=== PATIENT | female | born 1930 | race Caucasian/White ===

== ENCOUNTER 2016-06-12 10:11 | Emergency (ER) | payer OTHER ==
[2016-06-12] MEDS ORDERED: ONDANSETRON HCL 4 MG/2 ML SOL IV ONE ×2 (10:14→11:07)
[2016-06-12 10:31] LABS: BASOPHILS % (AUTO) 1 % (0-3); EOSINOPHILS % (AUTO) 5 % (0-9); HEMATOCRIT 36 % (35-47); MEAN CORPUSCULAR VOLUME 94 fL (81-99); MONOCYTES % (AUTO) 4.8 % (0-12); NEUTROPHILS % (AUTO) 57.2 % (37-80)
[2016-06-12] MEDS ORDERED: ONDANSETRON HCL 4 MG/2 ML SOL ONE ×2 (10:35→11:12)
[2016-06-12 10:50] VITALS: TEMP 98.2
[2016-06-12 10:50] LABS: CALCIUM 8.7 mg/dl (8.5-10.1); GLOM FILT RATE 37 mL/min (>60); POTASSIUM 3.3 mMol/L (3.5-5.1); SODIUM 138 mMol/L (136-145)
[2016-06-12] MEDS ORDERED: DEXTROSE/SALINE 0.45% 1,000 ML IV ONE (11:03)
[2016-06-12 11:46] LABS: APPEARANCE,URINE Cloudy; BILIRUBIN,URINE NEGATIVE (NEGATIVE); COLOR,URINE Yellow; GLUCOSE, URINE (UA) NEGATIVE (NEGATIVE); KETONES,URINE NEGATIVE (NEGATIVE); LEUKOCYTE ESTERASE ,URINE 3+ (NEGATIVE); NITRATE,URINE NEGATIVE (NEGATIVE); OCCULT BLOOD,URINE 2+ (NEG-TRACE); PH,URINE 5.5; UROBILINOGEN,URINE 0.2 (0.2-1.0 EU)
[2016-06-12 11:55] LABS: RBC,URINE UNABLE (0-3AV/HPF); WBC,URINE TNTC (0-5AV/HPF)
[2016-06-12] MEDS ORDERED: POTASSIUM CHLORIDE 10 MEQ TER PO ONE (12:22)
[2016-06-12] MEDS ORDERED: POTASSIUM CHLORIDE 10 MEQ TER ONE (12:35)
[2016-06-12] MEDS ORDERED: SULFAMETHOXAZOLE/TRIMETHOPRI 800/160 MG PO ONE (12:36)
[2016-06-12] MEDS ORDERED: ACETAMINOPHEN 500 MG 500 MG TAB PO ONE (12:43)
[2016-06-12] MEDS ORDERED: ACETAMINOPHEN 500 MG 500 MG TAB ONE (12:45)
[2016-06-12] MEDS ORDERED: SULFAMETHOXAZOLE/TRIMETHOPRI 800/160 MG ONE (12:45)
[2016-06-12 13:40] VITALS: BP 136/59; PULSE 52; RESP 18; O2SAT 95
== END 2016-06-12 13:33 | DRG 690 ==
LOC: ED 10:11
DX: N39.0 Urinary tract infection, site not specified (principal); I50.9 Heart failure, unspecified; E11.9 Type 2 diabetes mellitus without complications; E87.6 Hypokalemia; E86.0 Dehydration; R00.0 Tachycardia, unspecified; Z79.4 Long term (current) use of insulin
CPT/HCPCS: 71010; 80048; 81001; 83880; 84484; 85025; 87077; 87088; 87186; 93005; 99285; J2405

== ENCOUNTER 2016-06-27 07:43 | Emergency (ER) | payer OTHER ==
[2016-06-27 07:54] VITALS: TEMP 97.7
[2016-06-27 08:24] LABS: BASOPHILS % (AUTO) 1 % (0-3); EOSINOPHILS % (AUTO) 4 % (0-9); HEMATOCRIT 36 % (35-47); MEAN CORPUSCULAR HGB CONC 33.6 gm/dl (32.0-36.0); MEAN CORPUSCULAR VOLUME 94 fL (81-99); NEUTROPHILS % (AUTO) 72.6 % (37-80)
[2016-06-27 08:40] LABS: POTASSIUM 3.4 mMol/L (3.5-5.1)
[2016-06-27 09:16] VITALS: BP 110/46; PULSE 59; RESP 24; O2SAT 95
== END 2016-06-27 10:00 | DRG 313 ==
LOC: ED 07:43
DX: R07.9 Chest pain, unspecified (principal); G20 Parkinson's disease; F02.80 Dementia in other diseases classified elsewhere, unspecified severity, without behavioral disturbance, psychotic disturbance, mood disturbance, and anxiety
CPT/HCPCS: 36415; 80048; 84484; 85025; 93005; 99283

== ENCOUNTER 2016-12-30 10:23 | Emergency (ER) | payer OTHER ==
[2016-12-30 10:41] VITALS: RESP 16; TEMP 98.1
[2016-12-30 11:53] VITALS: BP 118/53; PULSE 58; O2SAT 94
== END 2016-12-30 12:11 | DRG 556 ==
LOC: ED 10:23
DX: M79.605 Pain in left leg (principal)
CPT/HCPCS: 36415; 85378; 99282

== ENCOUNTER 2017-02-28 01:07 | Emergency (ER) | payer OTHER ==
[2017-02-28] MEDS: SODIUM CHLORIDE 0.9% 1000ML 1,000 ML IV SCH (02:00)
[2017-02-28 02:04] LABS: BASOPHILS % (AUTO) 1 % (0-3); EOSINOPHILS % (AUTO) 4 % (0-9); HEMATOCRIT 34 % (35-47); MEAN CORPUSCULAR HGB CONC 32.3 gm/dl (32.0-36.0); MEAN CORPUSCULAR VOLUME 96 fL (81-99); MONOCYTES % (AUTO) 7.9 % (0-12); NEUTROPHILS % (AUTO) 59.1 % (37-80)
[2017-02-28 02:12] LABS: APPEARANCE,URINE Slightly Cloudy; BILIRUBIN,URINE NEGATIVE (NEGATIVE); COLOR,URINE Light yellow; GLUCOSE, URINE (UA) NEGATIVE (NEGATIVE); KETONES,URINE NEGATIVE (NEGATIVE); LEUKOCYTE ESTERASE ,URINE 1+ (NEGATIVE); NITRATE,URINE POSITIVE (NEGATIVE); OCCULT BLOOD,URINE TRACE INTACT (NEG-TRACE); UROBILINOGEN,URINE 0.2 (0.2-1.0 EU)
[2017-02-28 02:19] LABS: CALCIUM 8.7 mg/dl (8.5-10.1); GLOM FILT RATE 35 mL/min (>60); MAGNESIUM 1.9 mg/dl (1.8-2.4); SODIUM 139 mMol/L (136-145)
[2017-02-28 02:23] LABS: RBC,URINE 0-1 (0-3AV/HPF)
[2017-02-28 02:43] VITALS: TEMP 97.2
[2017-02-28] MEDS ORDERED: LEVOFLOXACIN 500 MG (PREMIX) 500 MG/100 ML SOL IV ONE (02:49)
[2017-02-28] MEDS: LEVOFLOXACIN 25 MG/ML 500 MG in SODIUM CHLORIDE 0.9% 100 ML 100 ML IV ONE (02:54)
[2017-02-28 02:57] VITALS: O2SAT 97
[2017-02-28 04:41] VITALS: BP 120/69; PULSE 54; RESP 20
== END 2017-02-28 04:35 | DRG 689 ==
LOC: ED 01:07
DX: N39.0 Urinary tract infection, site not specified (principal); R40.2212 Coma scale, best verbal response, none, at arrival to emergency department; I50.9 Heart failure, unspecified; E11.9 Type 2 diabetes mellitus without complications; R40.2362 Coma scale, best motor response, obeys commands, at arrival to emergency department; R40.2142 Coma scale, eyes open, spontaneous, at arrival to emergency department
CPT/HCPCS: 36415; 70460; 80048; 81001; 82550; 83735; 83880; 84484; 85025; 87077; 87088; 87186; 93005; 96365; 96366; 99070; 99284; 99285; J1956

== ENCOUNTER 2017-04-07 17:21 | Emergency (ER) | payer OTHER ==
[2017-04-07 17:40] VITALS: TEMP 99.2
[2017-04-07 17:43] LABS: BASOPHILS % (AUTO) 1 % (0-3); EOSINOPHILS % (AUTO) 3 % (0-9); HEMATOCRIT 33 % (35-47); MEAN CORPUSCULAR HGB CONC 33.1 gm/dl (32.0-36.0); MEAN CORPUSCULAR VOLUME 93 fL (81-99); MONOCYTES % (AUTO) 5.8 % (0-12); NEUTROPHILS % (AUTO) 53.7 % (37-80)
[2017-04-07] MEDS ORDERED: MORPHINE SULFATE 10 MG/ML SOL IV ONE (17:55)
[2017-04-07] MEDS ORDERED: MORPHINE SULFATE 10 MG/ML SOL ONE (17:55)
[2017-04-07 17:57] LABS: ALBUMIN 3.3 gm/dl (3.4-5.0); CALCIUM 8.3 mg/dl (8.5-10.1); POTASSIUM 4.2 mMol/L (3.5-5.1)
[2017-04-07] MEDS ORDERED: HYDROMORPHONE 1 MG/ML SYRINGE IV ONE (19:20)
[2017-04-07] MEDS ORDERED: HYDROMORPHONE 1 MG/ML SYRINGE ONE (19:22)
[2017-04-07 19:58] LABS: APPEARANCE,URINE Clear; BILIRUBIN,URINE NEGATIVE (NEGATIVE); COLOR,URINE Light yellow; GLUCOSE, URINE (UA) NEGATIVE (NEGATIVE); KETONES,URINE NEGATIVE (NEGATIVE); LEUKOCYTE ESTERASE ,URINE 2+ (NEGATIVE); NITRATE,URINE NEGATIVE (NEGATIVE); OCCULT BLOOD,URINE TRACE LYSED (NEG-TRACE); UROBILINOGEN,URINE 0.2 (0.2-1.0 EU)
[2017-04-07 20:02] LABS: RBC,URINE 0-2 (0-3AV/HPF); WBC,URINE 15-20 (0-5AV/HPF)
[2017-04-07 20:03] VITALS: RESP 15; O2SAT 92
[2017-04-07 20:16] VITALS: BP 173/71; PULSE 72
== END 2017-04-07 20:15 | disposition short-term general hospital (02) | DRG 534 ==
LOC: ED 17:21
DX: S72.92XA Unspecified fracture of left femur, initial encounter for closed fracture (principal); W19.XXXA Unspecified fall, initial encounter
CPT/HCPCS: 36415; 73501; 73590; 80053; 81001; 85025; 85610; 85730; 99285; J2270; J1170

== ENCOUNTER 2017-04-24 09:43 | Outpatient (CLI) | payer OTHER ==
[2017-04-07 20:03] VITALS: O2SAT 92
== END 2017-04-24 09:44 | disposition home or self-care (01) | DRG 561 ==
LOC: CONVCARE 09:43
PROVIDERS: ATTEND Orthopaedic Surgery
DX: S72.302D Unspecified fracture of shaft of left femur, subsequent encounter for closed fracture with routine healing (principal)
CPT/HCPCS: 73552

== ENCOUNTER 2017-06-05 10:55 | Outpatient (CLI) | payer OTHER ==
[2017-04-07 20:03] VITALS: O2SAT 92
== END 2017-06-05 10:56 | disposition home or self-care (01) | DRG 561 ==
LOC: CONVCARE 10:55
PROVIDERS: ATTEND Orthopaedic Surgery
DX: S72.402D Unspecified fracture of lower end of left femur, subsequent encounter for closed fracture with routine healing (principal); Z96.642 Presence of left artificial hip joint; Z98.890 Other specified postprocedural states
CPT/HCPCS: 73552

== ENCOUNTER 2017-10-09 09:28 | Outpatient (CLI) | payer OTHER ==
[2017-04-07 20:03] VITALS: O2SAT 92
== END 2017-10-09 09:29 | disposition home or self-care (01) | DRG 561 ==
LOC: CONVCARE 09:28
PROVIDERS: ATTEND Orthopaedic Surgery
DX: S72.402D Unspecified fracture of lower end of left femur, subsequent encounter for closed fracture with routine healing (principal); Z51.89 Encounter for other specified aftercare
CPT/HCPCS: 73552

== ENCOUNTER 2017-10-17 21:02 | Emergency (ER) | payer OTHER ==
[2017-10-17 21:24] VITALS: RESP 16; TEMP 97.8
[2017-10-17 21:27] LABS: BASOPHILS % (AUTO) 1 % (0-3); EOSINOPHILS % (AUTO) 3 % (0-9); HEMATOCRIT 39 % (35-47); HEMOGLOBIN 12.8 gm/dl (12.0-15.5); MEAN CORPUSCULAR HEMOGLOBIN 31.8 pg (27.0-32.0); MEAN CORPUSCULAR HGB CONC 33.2 gm/dl (32.0-36.0); MEAN CORPUSCULAR VOLUME 96 fL (81-99); MONOCYTES % (AUTO) 5.8 % (0-12)
[2017-10-17 21:32] LABS: LACTIC ACID 1.6 mMol/L (0.0-2.0)
[2017-10-17 21:36] LABS: APPEARANCE,URINE Slightly Cloudy; BILIRUBIN,URINE NEGATIVE (NEGATIVE); COLOR,URINE Yellow; GLUCOSE, URINE (UA) NEGATIVE (NEGATIVE); KETONES,URINE NEGATIVE (NEGATIVE); LEUKOCYTE ESTERASE ,URINE TRACE (NEGATIVE); NITRATE,URINE NEGATIVE (NEGATIVE); OCCULT BLOOD,URINE NEGATIVE (NEG-TRACE); UROBILINOGEN,URINE 0.2 (0.2-1.0 EU)
[2017-10-17 21:41] LABS: BILIRUBIN,TOTAL 0.3 mg/dl (0.2-1.0); CALCIUM 8.2 mg/dl (8.5-10.1); CARBON DIOXIDE 25.4 mEq/L (21-32); CREATININE 2.15 mg/dl (0.60-1.00); POTASSIUM 3.4 mMol/L (3.5-5.1); TOTAL PROTEIN 6.8 gm/dl (6.4-8.2)
[2017-10-17 21:45] LABS: BACTERIA 4+ (< 1+); CRYSTALS NEGATIVE (0-3 AVE/HPF); EPITHELIAL CELLS 0-1 (SQUAMOUS); RBC,URINE NEGATIVE (0-3AV/HPF)
[2017-10-17] MEDS ORDERED: SODIUM CHLORIDE 0.9% FLUSH 10 ML SOL IV PRN (22:05)
[2017-10-17] MEDS: SODIUM CHLORIDE 0.9% 1000ML 500 ML IV SCH ×2 (22:05→22:46)
[2017-10-17] MEDS ORDERED: CIPROFLOXACIN HCL 500 MG TAB PO SCH (22:15)
[2017-10-17] MEDS ORDERED: CIPROFLOXACIN HCL 500 MG TAB PO ONE (22:40)
[2017-10-17 22:49] VITALS: BP 138/74; PULSE 98; O2SAT 97
== END 2017-10-17 23:05 | DRG 690 ==
LOC: ED 21:02
DX: N39.0 Urinary tract infection, site not specified (principal); I50.9 Heart failure, unspecified
CPT/HCPCS: 36415; 80053; 81001; 83880; 85025; 87088; 96365; 99283; 99285; A9270-GY

== ENCOUNTER 2018-01-08 13:17 | Outpatient (CLI) | payer OTHER ==
[2017-10-17 22:49] VITALS: O2SAT 97
== END 2018-01-08 13:18 | disposition home or self-care (01) | DRG 951 ==
LOC: CONVCARE 13:17
PROVIDERS: ATTEND Orthopaedic Surgery
DX: Z98.890 Other specified postprocedural states (principal); S72.92XD Unspecified fracture of left femur, subsequent encounter for closed fracture with routine healing
CPT/HCPCS: 73552

== ENCOUNTER 2018-03-12 12:28 | Outpatient (CLI) | payer OTHER ==
[2017-10-17 22:49] VITALS: O2SAT 97
== END 2018-03-12 12:29 | disposition home or self-care (01) | DRG 561 ==
LOC: CONVCARE 12:28
PROVIDERS: ATTEND Orthopaedic Surgery
DX: S72.92XG Unspecified fracture of left femur, subsequent encounter for closed fracture with delayed healing (principal); Z98.890 Other specified postprocedural states
CPT/HCPCS: 73552

== ENCOUNTER 2018-06-24 12:09 | Emergency (ER) | payer OTHER ==
[2018-06-24] MEDS ORDERED: SODIUM CHLORIDE 0.9% 500 ML 500 ML IV ONE ×2 (12:17→14:26)
[2018-06-24] MEDS ORDERED: ONDANSETRON HCL 4 MG/2 ML SOL IV ONE (12:18)
[2018-06-24] MEDS ORDERED: ONDANSETRON HCL 4 MG/2 ML SOL ONE (12:47)
[2018-06-24 12:48] LABS: BASOPHILS % (AUTO) 1 % (0-3); EOSINOPHILS % (AUTO) 1 % (0-9); HEMATOCRIT 42 % (35-47); HEMOGLOBIN 13.5 gm/dl (12.0-15.5); LYMPHOCYTES % (AUTO) 28.4 % (10-50); MEAN CORPUSCULAR HEMOGLOBIN 32.1 pg (27.0-32.0); MEAN CORPUSCULAR HGB CONC 32.5 gm/dl (32.0-36.0); MONOCYTES % (AUTO) 4.3 % (0-12); NEUTROPHILS % (AUTO) 65.7 % (37-80)
[2018-06-24 12:51] VITALS: TEMP 97.1
[2018-06-24 12:51] LABS: MEAN CORPUSCULAR VOLUME 99 fL (81-99)
[2018-06-24 12:56] LABS: CALCIUM 9.2 mg/dl (8.5-10.1); CARBON DIOXIDE 30.6 mEq/L (21-32); CREATININE 1.27 mg/dl (0.60-1.00); POTASSIUM 4.1 mMol/L (3.5-5.1)
[2018-06-24 14:04] LABS: APPEARANCE,URINE Slightly Cloudy; BILIRUBIN,URINE NEGATIVE (NEGATIVE); COLOR,URINE Yellow; GLUCOSE, URINE (UA) NEGATIVE (NEGATIVE); KETONES,URINE TRACE (NEGATIVE); LEUKOCYTE ESTERASE ,URINE TRACE (NEGATIVE); NITRATE,URINE NEGATIVE (NEGATIVE); OCCULT BLOOD,URINE TRACE INTACT (NEG-TRACE); UROBILINOGEN,URINE 0.2 (0.2-1.0 EU)
[2018-06-24 14:29] LABS: BACTERIA 3+ (< 1+); CRYSTALS NEGATIVE (0-3 AVE/HPF); EPITHELIAL CELLS 0-2 (SQUAMOUS); RBC,URINE 0-2 (0-3AV/HPF)
[2018-06-24] MEDS ORDERED: CEFTRIAXONE 1 GM PDS 1 GM in SODIUM CHLORIDE 0.9% 50 ML 50 ML IV ONE (14:48)
[2018-06-24] MEDS ORDERED: CEFTRIAXONE 1 GM PDS ONE (15:34)
[2018-06-24 17:15] VITALS: BP 158/73; PULSE 86; RESP 20; O2SAT 94
== END 2018-06-24 17:39 | DRG 392 ==
LOC: ED 12:09
DX: K52.9 Noninfective gastroenteritis and colitis, unspecified (principal); N39.0 Urinary tract infection, site not specified; E11.9 Type 2 diabetes mellitus without complications; M79.605 Pain in left leg
CPT/HCPCS: 36415; 74019; 80048; 81001; 83880; 85025; 87077; 87088; 87186; 96365; 96366; 96374; 99283; 99285; J0696; J2405

== ENCOUNTER 2018-10-21 19:20 | Emergency (ER) | payer OTHER ==
[2018-10-21] MEDS ORDERED: SODIUM CHLORIDE 0.9% 500 ML 500 ML IV ONE (20:14)
[2018-10-21] MEDS ORDERED: ONDANSETRON HCL 4 MG/2 ML SOL IV ONE (20:16)
[2018-10-21] MEDS ORDERED: ONDANSETRON HCL 4 MG/2 ML SOL ONE (20:33)
[2018-10-21] MEDS ORDERED: CLONIDINE 0.1 MG TAB PO ONE (20:49)
[2018-10-21 20:52] LABS: ALBUMIN 3.1 gm/dl (3.4-5.0); ALKALINE PHOSPHATASE 76 IU/L (46-116); ALT 16 IU/L (14-63); AST 16 IU/L (15-37); BILIRUBIN,TOTAL 0.6 mg/dl (0.2-1.0); BLOOD UREA NITROGEN 26 mg/dl (7-18); CALCIUM 8.8 mg/dl (8.5-10.1); CARBON DIOXIDE 26.3 mEq/L (21-32); CHLORIDE 104 mMol/L (98-107); CREATININE 1.11 mg/dl (0.60-1.00); GLUCOSE 132 mg/dl (74-106); TROP I < 0.017 ng/ml (0.000-0.056)
[2018-10-21 21:00] LABS: BASOPHILS % (AUTO) 1 % (0-3); EOSINOPHILS % (AUTO) 1 % (0-9); HEMATOCRIT 39 % (35-47); HEMOGLOBIN 12.2 gm/dl (12.0-15.5); LYMPHOCYTES % (AUTO) 35.4 % (10-50); MEAN CORPUSCULAR HEMOGLOBIN 31.2 pg (27.0-32.0); MEAN CORPUSCULAR HGB CONC 31.6 gm/dl (32.0-36.0); MONOCYTES % (AUTO) 8.4 % (0-12); NEUTROPHILS % (AUTO) 54.1 % (37-80)
[2018-10-21 21:01] LABS: MEAN CORPUSCULAR VOLUME 99 fL (81-99)
[2018-10-21 21:22] LABS: APPEARANCE,URINE Slightly Cloudy; BILIRUBIN,URINE 2+ (NEGATIVE); COLOR,URINE Yellow; GLUCOSE, URINE (UA) NEGATIVE (NEGATIVE); KETONES,URINE 2+ (NEGATIVE); LEUKOCYTE ESTERASE ,URINE TRACE (NEGATIVE); NITRATE,URINE NEGATIVE (NEGATIVE); OCCULT BLOOD,URINE TRACE LYSED (NEG-TRACE); PH,URINE 5.5
[2018-10-21 21:31] VITALS: RESP 18
[2018-10-21 21:44] LABS: ICTOTEST,URINE NEGATIVE (NEGATIVE); RBC,URINE 0-2 (0-3AV/HPF); WBC,URINE 60-80 (0-5AV/HPF)
[2018-10-21 21:45] LABS: BACTERIA 3+ (< 1+); CRYSTALS NEGATIVE (0-3 AVE/HPF)
[2018-10-21] MEDS ORDERED: LEVOFLOXACIN 500 MG TAB PO ONE (22:14)
[2018-10-21 23:01] VITALS: BP 151/102; PULSE 66; O2SAT 97
[2018-10-21 23:04] VITALS: TEMP 97.8
== END 2018-10-21 23:00 | DRG 690 ==
LOC: ED 19:20
DX: N39.0 Urinary tract infection, site not specified (principal); E11.43 Type 2 diabetes mellitus with diabetic autonomic (poly)neuropathy; K31.84 Gastroparesis; Z79.4 Long term (current) use of insulin; R11.10 Vomiting, unspecified; R06.02 Shortness of breath
CPT/HCPCS: 80053; 81001; 82272; 83880; 84484; 85025; 87077; 87088; 87186; 96365; 96374; 99284; 99285; J2405; A6232; A9270-GY

== ENCOUNTER 2018-10-22 18:43 | Emergency (ER) | payer OTHER ==
[2018-10-22 18:43] VITALS: O2SAT 97
[2018-10-22 18:53] VITALS: TEMP 97.2
[2018-10-22 21:40] VITALS: BP 165/62; PULSE 59; RESP 20
[2018-10-23] MEDS ORDERED: SODIUM CHLORIDE 0.9% 500 ML 500 ML IV ONE (14:54)
[2018-10-23] MEDS ORDERED: SODIUM CHLORIDE 0.9% 1000ML 1,000 ML IV ONE (14:54)
[2018-10-23] MEDS ORDERED: CEFTRIAXONE 1 GM PDS 1 GM in SODIUM CHLORIDE 0.9% 50 ML 50 ML IV ONE (14:55)
[2018-10-23] MEDS ORDERED: ONDANSETRON HCL 4 MG/2 ML SOL IV ONE (15:01)
[2018-10-23 15:22] LABS: BASOPHILS % (AUTO) 1 % (0-3); EOSINOPHILS % (AUTO) 0 % (0-9); HEMATOCRIT 39 % (35-47); HEMOGLOBIN 12.3 gm/dl (12.0-15.5); LYMPHOCYTES % (AUTO) 14.8 % (10-50); MEAN CORPUSCULAR HEMOGLOBIN 31.6 pg (27.0-32.0); MEAN CORPUSCULAR HGB CONC 31.7 gm/dl (32.0-36.0); MONOCYTES % (AUTO) 6.9 % (0-12); NEUTROPHILS % (AUTO) 77.1 % (37-80)
[2018-10-23 15:24] LABS: MEAN CORPUSCULAR VOLUME 100 fL (81-99)
[2018-10-23 15:31] LABS: ALBUMIN 3.3 gm/dl (3.4-5.0); BILIRUBIN,TOTAL 0.7 mg/dl (0.2-1.0); CALCIUM 8.7 mg/dl (8.5-10.1); CARBON DIOXIDE 24.6 mEq/L (21-32); CREATININE 1.07 mg/dl (0.60-1.00); TOTAL PROTEIN 7.3 gm/dl (6.4-8.2)
== END 2018-10-22 21:01 | DRG 392 ==
LOC: ED 18:43
DX: R11.2 Nausea with vomiting, unspecified (principal); N39.0 Urinary tract infection, site not specified
CPT/HCPCS: 36415; 74019; 80053; 83690; 85025; 99282; 99283

== ENCOUNTER 2018-10-23 14:18 | Emergency (ER) | payer OTHER ==
[2018-10-23 14:18] VITALS: O2SAT 97
[2018-10-23 14:28] VITALS: RESP 18; TEMP 97.5
[2018-10-23] MEDS ORDERED: CEFTRIAXONE 1 GM PDS ONE (14:56)
[2018-10-23] MEDS ORDERED: ONDANSETRON HCL 4 MG/2 ML SOL IV ONE (15:02)
[2018-10-23] MEDS ORDERED: SODIUM CHLORIDE 0.9% 500 ML 500 ML IV ONE (15:03)
[2018-10-23] MEDS ORDERED: CEFTRIAXONE 1 GM PDS 1 GM in SODIUM CHLORIDE 0.9% 50 ML 50 ML IV ONE (15:03)
[2018-10-23] MEDS ORDERED: ONDANSETRON HCL 4 MG/2 ML SOL ONE (15:06)
[2018-10-23 15:28] VITALS: BP 156/80; PULSE 76
[2018-10-23] MEDS ORDERED: PROMETHAZINE HYDROCHLORIDE 25 MG/ML SOL IV ONE (16:17)
[2018-10-23] MEDS ORDERED: PROMETHAZINE HYDROCHLORIDE 25 MG/ML SOL ONE (16:22)
[2018-10-23 17:19] LABS: APPEARANCE,URINE Clear; BILIRUBIN,URINE 2+ (NEGATIVE); COLOR,URINE Yellow; GLUCOSE, URINE (UA) NEGATIVE (NEGATIVE); KETONES,URINE 2+ (NEGATIVE); LEUKOCYTE ESTERASE ,URINE 1+ (NEGATIVE); NITRATE,URINE NEGATIVE (NEGATIVE); OCCULT BLOOD,URINE 2+ (NEG-TRACE)
[2018-10-23 17:24] LABS: BACTERIA 3+ (< 1+); CRYSTALS NEGATIVE (0-3 AVE/HPF); ICTOTEST,URINE NEGATIVE (NEGATIVE); RBC,URINE 0-2 (0-3AV/HPF); WBC,URINE TNTC (0-5AV/HPF)
== END 2018-10-23 18:51 | DRG 392 ==
LOC: ED 14:18
DX: R11.2 Nausea with vomiting, unspecified (principal); N39.0 Urinary tract infection, site not specified; E86.0 Dehydration; E11.43 Type 2 diabetes mellitus with diabetic autonomic (poly)neuropathy; K31.84 Gastroparesis
CPT/HCPCS: 74176; 74177; 81001; 96365; 96374; 96375; 99070; 99283; 99284; J0696; J2405; J2550

== ENCOUNTER 2018-10-28 16:16 | Emergency (ER) | payer OTHER | END 2018-10-28 18:51 | disposition home or self-care (01) | LOC: ED 16:16 ==

== ENCOUNTER 2018-11-03 17:17 | Observation (INO) | payer OTHER ==
[2018-11-03 18:40] LABS: BLOOD UREA NITROGEN 16 mg/dl (7-18); CALCIUM 9.1 mg/dl (8.5-10.1); CARBON DIOXIDE 28.4 mEq/L (21-32); CHLORIDE 101 mMol/L (98-107); GLUCOSE 135 mg/dl (74-106); TROP I < 0.017 ng/ml (0.000-0.056)
[2018-11-03 18:44] LABS: APPEARANCE,URINE Cloudy; BILIRUBIN,URINE 1+ (NEGATIVE); COLOR,URINE Yellow; GLUCOSE, URINE (UA) NEGATIVE (NEGATIVE); KETONES,URINE NEGATIVE (NEGATIVE); LEUKOCYTE ESTERASE ,URINE NEGATIVE (NEGATIVE); NITRATE,URINE NEGATIVE (NEGATIVE); OCCULT BLOOD,URINE TRACE LYSED (NEG-TRACE); PH,URINE 5.5; UROBILINOGEN,URINE 0.2 (0.2-1.0 EU)
[2018-11-03 18:44] LABS: BASOPHILS % (AUTO) 1 % (0-3); EOSINOPHILS % (AUTO) 2 % (0-9); HEMATOCRIT 45 % (35-47); HEMOGLOBIN 14.6 gm/dl (12.0-15.5); LYMPHOCYTES % (AUTO) 33.5 % (10-50); MEAN CORPUSCULAR HEMOGLOBIN 31.6 pg (27.0-32.0); MEAN CORPUSCULAR HGB CONC 32.3 gm/dl (32.0-36.0); MEAN CORPUSCULAR VOLUME 98 fL (81-99); MONOCYTES % (AUTO) 9.4 % (0-12); NEUTROPHILS % (AUTO) 53.5 % (37-80)
[2018-11-03 18:59] LABS: CRYSTALS NEGATIVE (0-3 AVE/HPF); ICTOTEST,URINE NEGATIVE (NEGATIVE); RBC,URINE 0-4 (0-3AV/HPF); WBC,URINE 0-2 (0-5AV/HPF)
[2018-11-03 19:00] LABS: BACTERIA 2+ (< 1+)
[2018-11-03] MEDS ORDERED: OLOPATADINE HCL EACHEYE PRN (19:37)
[2018-11-03] MEDS ORDERED: NITROGLYCERIN 0.4 MG TAB SL PRN (19:37)
[2018-11-03] MEDS ORDERED: ALUMINUM/MAGNESIUM 30 ML SUS PO PRN (19:37)
[2018-11-03] MEDS ORDERED: ONDANSETRON 4 MG ODT PO PRN (19:37)
[2018-11-03] MEDS ORDERED: SODIUM CHLORIDE 0.9% 500 ML 500 ML IV SCH (19:45)
[2018-11-03 20:02] VITALS: RESP 16
[2018-11-03] MEDS ORDERED: MIRTAZAPINE 15 MG TAB PO SCH (21:00)
[2018-11-03] MEDS ORDERED: TRAZODONE HYDROCHLORIDE 50 MG TAB PO SCH (21:00)
[2018-11-03] MEDS ORDERED: HYDRALAZINE HYDROCHLORIDE 20 MG/ML SOL ONE (21:06)
[2018-11-03] MEDS ORDERED: ACETAMINOPHEN 500 MG 500 MG TAB ONE (21:07)
[2018-11-03] MEDS: HYDRALAZINE HYDROCHLORIDE 20 MG/ML SOL IV SCH (21:15)
[2018-11-03] MEDS: SODIUM CHLORIDE 0.9% 1000ML 1,000 ML IV SCH (21:16)
[2018-11-03] MEDS: ACETAMINOPHEN 500 MG 500 MG TAB PO SCH (21:23)
[2018-11-03] MEDS: SUCRALFATE 1 GM TAB PO SCH (21:23)
[2018-11-03] MEDS: METOCLOPRAMIDE HYDROCHLORIDE 5 MG TAB PO SCH (21:32)
[2018-11-04] MEDS: HYDRALAZINE HYDROCHLORIDE 20 MG/ML SOL IV SCH ×4 (00:07→14:32)
[2018-11-04] MEDS: CALCIUM POLYCARBOPHIL PO SCH ×2 (01:10→08:43)
[2018-11-04] MEDS: Non-Formulary Medication MISC (Peg-400/Propylene Glycol 1 DROP) EACHEYE SCH ×2 (01:10→08:42)
[2018-11-04] MEDS ORDERED: LEVOTHYROXINE SODIUM 50 MCG TAB PO SCH (07:00)
[2018-11-04] MEDS: SODIUM CHLORIDE 0.9% 1000ML 1,000 ML IV SCH (07:22)
[2018-11-04] MEDS: METOCLOPRAMIDE HYDROCHLORIDE 5 MG TAB PO SCH ×2 (07:22→11:12)
[2018-11-04 08:17] LABS: CALCIUM 8.4 mg/dl (8.5-10.1); CARBON DIOXIDE 26.6 mEq/L (21-32); CREATININE 0.98 mg/dl (0.60-1.00); THYROID STIMULATING HORMONE 2.674 uIU/ml (0.358-3.740)
[2018-11-04] MEDS ORDERED: PANTOPRAZOLE SODIUM 40 MG ECT PO ONE (08:21)
[2018-11-04 08:23] VITALS: O2SAT 95
[2018-11-04] MEDS: SUCRALFATE 1 GM TAB PO SCH (08:41)
[2018-11-04] MEDS: ACETAMINOPHEN 500 MG 500 MG TAB PO SCH ×2 (08:42→14:40)
[2018-11-04] MEDS ORDERED: CLOPIDOGREL 75 MG TAB PO SCH (09:00)
[2018-11-04] MEDS ORDERED: OMEPRAZOLE 20 MG CAPSULE PO SCH (09:00)
[2018-11-04] MEDS ORDERED: LOSARTAN POTASSIUM 50 MG TAB PO SCH (09:00)
[2018-11-04] MEDS ORDERED: BISACODYL 10 MG SUP PR PRN (09:00)
[2018-11-04] MEDS ORDERED: FUROSEMIDE 40 MG TAB PO SCH (09:00)
[2018-11-04] MEDS ORDERED: POLYETHYLENE GLYCOL 17 GM/1 TBS PDS PO SCH (09:00)
[2018-11-04] MEDS ORDERED: MAGNESIUM HYDROXIDE 30 ML SUS PO PRN (09:00)
[2018-11-04] MEDS ORDERED: ISOSORBIDE MONONITRATE 30 MG TER PO SCH (09:00)
[2018-11-04] MEDS ORDERED: PSYLLIUM 3.6 GM/1 TBS PDR PO SCH (09:30)
[2018-11-04] MEDS ORDERED: PANTOPRAZOLE SODIUM 40 MG ECT PO SCH (09:30)
[2018-11-04] MEDS ORDERED: PEG-400/PROPYLENE GLYCOL 1 DROP SOL EACHEYE SCH (09:30)
[2018-11-04 11:16] VITALS: PULSE 106; TEMP 98.1
[2018-11-04] MEDS ORDERED: CLONIDINE 0.1 MG TAB PO ONE (11:52)
[2018-11-04 13:14] VITALS: BP 147/74
[2018-11-05] MEDS ORDERED: FUROSEMIDE 80 MG TAB PO SCH (09:00)
[2018-11-05] MEDS ORDERED: CLONIDINE 0.1 MG TAB PO SCH (09:00)
== END 2018-11-04 15:18 | DRG 948 ==
LOC: ED 17:17 → UNDOADMOB 19:24 → ACUTE CARE 19:24
PROVIDERS: ADMIT Family Medicine; ATTEND Family Medicine
DX: R41.82 Altered mental status, unspecified (principal); R53.1 Weakness; I50.9 Heart failure, unspecified; E11.9 Type 2 diabetes mellitus without complications; R40.2362 Coma scale, best motor response, obeys commands, at arrival to emergency department; R40.2142 Coma scale, eyes open, spontaneous, at arrival to emergency department; R40.2242 Coma scale, best verbal response, confused conversation, at arrival to emergency department
CPT/HCPCS: 36415; 70450; 80048; 81001; 84443; 84484; 85025; 87088; 93005; 93012; 99217; 99218; 99285; J0360; A9270; A9270-GY